=== PATIENT | male | born 2005 | race Caucasian/White ===

== ENCOUNTER → 2024-05-21 | Outpatient (CLI) | payer OTHER ==
[~2024-05-21] MED LIST: ISOVUE-300 61% 100ML VIAL As Ordered ONE; LIDOCAINE 1% MDV 20ML VIAL As Ordered ONE; TRIAMCINOLONE ACETONIDE SUSP 40MG/ML 1ML VIAL As Ordered ONE
== END ==
LOC: M RAD 14:43
PROVIDERS: ATTEND Physician Assistant Surgical
DX: S73.121A Ischiocapsular ligament sprain of right hip, initial encounter (principal); X58.XXXA Exposure to other specified factors, initial encounter; Y92.9 Unspecified place or not applicable
CPT/HCPCS: 20610; 77002; J3301; Q9967

== ENCOUNTER → 2024-07-31 | Outpatient (CLI) | payer OTHER ==
[~2024-07-31] MED LIST changes: +PROHANCE 279.3MG/ML 5ML VIAL As Ordered ONE; -TRIAMCINOLONE ACETONIDE SUSP 40MG/ML 1ML VIAL As Ordered ONE
== END ==
LOC: M RAD 06:28
PROVIDERS: ATTEND Student in an Organized Health Care Education/Training Program
DX: M25.851 Other specified joint disorders, right hip (principal); S73.101A Unspecified sprain of right hip, initial encounter; X58.XXXA Exposure to other specified factors, initial encounter; Y92.9 Unspecified place or not applicable
CPT/HCPCS: 27093; 73723; 77002; A9576; Q9967

== ENCOUNTER 2024-08-05 06:01 | Emergency (ER) | payer OTHER ==
[~2024-08-05] VITALS: Ht 170.2 cm; Wt 84.0 kg
[2024-08-05] MEDS: DERMABOND TOPICAL SKIN ADHESIVE TOP ONE (07:35)
[2024-08-05 08:54] VITALS: BP 120/70; TEMP 97.5; O2SAT 100
== END 2024-08-05 08:54 | disposition home or self-care (01) ==
LOC: M ED 06:01 → EDBD 06:01 → M ED 08:54
DX: S01.81XA Laceration without foreign body of other part of head, initial encounter (principal); S09.90XA Unspecified injury of head, initial encounter; Y04.0XXA Assault by unarmed brawl or fight, initial encounter; F10.10 Alcohol abuse, uncomplicated; Y92.133 Barracks on military base as the place of occurrence of the external cause; Y93.89 Activity, other specified; Y99.1 Military activity

== ENCOUNTER 2024-08-09 10:58 | Emergency (ER) | payer OTHER ==
[~2024-08-09] VITALS: Ht 170.2 cm; Wt 93.7 kg
[2024-08-09] MEDS: diphenhydrAMINE 50MG/ML VIAL IV ONE (14:37)
[2024-08-09] MEDS: NS 1,000 ML IV ONE (14:37)
[2024-08-09] MEDS: METOCLOPRAMIDE INJ 10MG/2ML VIAL IV ONE (14:37)
[2024-08-09] MEDS: KETOROLAC 30 MG/ML 1ML VIAL IV ONE (15:09)
[2024-08-09 15:49] VITALS: BP 143/76; TEMP 97.4; O2SAT 100
== END 2024-08-09 15:52 | disposition home or self-care (01) ==
LOC: M ED 10:58
DX: G44.309 Post-traumatic headache, unspecified, not intractable (principal); W01.198A Fall on same level from slipping, tripping and stumbling with subsequent striking against other object, initial encounter; Y92.9 Unspecified place or not applicable; Y93.89 Activity, other specified; Y99.9 Unspecified external cause status
CPT/HCPCS: 70450; 96361; 96374; 96375; 99284; J1100; J1200; J1885; J2765

== ENCOUNTER 2024-10-19 01:28 | Emergency (ER) | payer OTHER ==
[~2024-10-19] VITALS: Ht 170.2 cm; Wt 77.0 kg
[2024-10-19 02:22] LABS: HEMATOCRIT 43.8 % (42.0-52.0); HEMOGLOBIN 14.7 g/dl (13.5-17.5); MEAN CORPUSCULAR HEMOGLOBIN 29.9 pg (27.0-33.0); MEAN CORPUSCULAR HGB CONC 33.6 g/dl (32.0-36.5); PLATELET COUNT, AUTOMATED 470 10^3/uL (150-450); RED BLOOD COUNT 4.92 10^6/uL (4.30-6.10); WHITE BLOOD COUNT 10.6 10^3/uL (4.0-10.0)
[2024-10-19 02:44] LABS: AMPHETAMINES LEVEL URINE NEGATIVE (NEGATIVE); BARBITURATES URINE NEGATIVE (NEGATIVE); BENZODIAZEPINES URINE NEGATIVE (NEGATIVE); CANNABINOIDS URINE NEGATIVE (NEGATIVE); COCAINE METABOLITE URINE NEGATIVE (NEGATIVE); METHADONE URINE NEGATIVE (NEGATIVE); OPIATES URINE NEGATIVE (NEGATIVE); PHENCYCLIDINE URINE NEGATIVE (NEGATIVE)
[2024-10-19 02:46] LABS: ETHYL ALCOHOL (ETHANOL) 0.264 % (0.000-0.010)
[2024-10-19 02:48] LABS: ALBUMIN 4.6 G/DL (3.2-5.2); ALKALINE PHOSPHATASE 93 U/L (40-129); ALT/SGPT 26 U/L (7.0-40); AST/SGOT 18 U/L (<34); BILIRUBIN,DIRECT 0.1 MG/DL (<0.4); BILIRUBIN,TOTAL 0.4 MG/DL (0.3-1.2); BLOOD UREA NITROGEN 12 MG/DL (9-23); CALCIUM LEVEL 10.1 MG/DL (8.5-10.1); CARBON DIOXIDE LEVEL 22 MMOL/L (20-31); CHLORIDE LEVEL 108 MMOL/L (98-107); CREATININE FOR GFR 1.09 MG/DL (0.70-1.30); GLOMERULAR FILTRATION RATE > 60.0 (>60); GLUCOSE, FASTING 101 MG/DL (60-100); SALICYLATE LEVEL < 3.0 MG/DL (<30); SODIUM LEVEL 143 MMOL/L (136-145); TOTAL PROTEIN 8.1 G/DL (5.7-8.2)
[2024-10-19 02:50] LABS: THYROID STIMULATING HORMONE 1.419 uIU/ML (0.55-4.78)
[2024-10-19] MEDS: NICOTINE 21MG/24HR 1 EA TRANSDERMAL TD ONE (03:25)
[2024-10-19 10:20] VITALS: BP 137/71; TEMP 97.5; O2SAT 98
== END 2024-10-19 11:17 | disposition home or self-care (01) ==
LOC: M ED 01:28 → EDBD 01:28 → M ED 11:17
DX: F10.14 Alcohol abuse with alcohol-induced mood disorder (principal)

== ENCOUNTER 2025-03-31 06:34 | Emergency (ER) | payer OTHER ==
[~2025-03-31] VITALS: Ht 172.7 cm; Wt 75.6 kg
[2025-03-31] MEDS ORDERED: CONC27TA4 PO (07:59)
[2025-03-31] MEDS ORDERED: HOME MED LIST COMPLETE! XX SCH (08:00)
[2025-03-31 08:10] LABS: HEMATOCRIT 40.9 % (42.0-52.0); HEMOGLOBIN 14.1 g/dl (13.5-17.5); MEAN CORPUSCULAR HEMOGLOBIN 30.7 pg (27.0-33.0); MEAN CORPUSCULAR HGB CONC 34.5 g/dl (32.0-36.5); MEAN CORPUSCULAR VOLUME 88.9 fl (80.0-96.0); PLATELET COUNT, AUTOMATED 394 10^3/uL (150-450); WHITE BLOOD COUNT 10.4 10^3/uL (4.0-10.0)
[2025-03-31 08:36] LABS: AMPHETAMINES LEVEL URINE NEGATIVE (NEGATIVE); BARBITURATES URINE NEGATIVE (NEGATIVE); BENZODIAZEPINES URINE NEGATIVE (NEGATIVE); CANNABINOIDS URINE NEGATIVE (NEGATIVE); COCAINE METABOLITE URINE NEGATIVE (NEGATIVE); METHADONE URINE NEGATIVE (NEGATIVE); OPIATES URINE NEGATIVE (NEGATIVE); PHENCYCLIDINE URINE NEGATIVE (NEGATIVE)
[2025-03-31 08:38] LABS: ETHYL ALCOHOL (ETHANOL) 0.194 % (0.000-0.010)
[2025-03-31 08:40] LABS: ALBUMIN 4.6 G/DL (3.2-5.2); ALKALINE PHOSPHATASE 80 U/L (40-129); ALT/SGPT 38 U/L (7.0-40); AST/SGOT 39 U/L (<34); BILIRUBIN,DIRECT 0.1 MG/DL (<0.4); BILIRUBIN,TOTAL 0.4 MG/DL (0.3-1.2); BLOOD UREA NITROGEN 16 MG/DL (9-23); CARBON DIOXIDE LEVEL 24 MMOL/L (20-31); CHLORIDE LEVEL 108 MMOL/L (98-107); CREATININE FOR GFR 0.97 MG/DL (0.70-1.30); GLOMERULAR FILTRATION RATE > 90.0 (>60); GLUCOSE, FASTING 93 MG/DL (60-100); POTASSIUM SERUM 4.1 MMOL/L (3.5-5.1); SALICYLATE LEVEL < 3.0 MG/DL (<30); SODIUM LEVEL 145 MMOL/L (136-145); TOTAL PROTEIN 7.3 G/DL (5.7-8.2)
[2025-03-31 08:42] LABS: THYROID STIMULATING HORMONE 1.189 uIU/ML (0.55-4.78)
[2025-03-31 12:25] VITALS: BP 131/62; TEMP 98.4; O2SAT 97
== END 2025-03-31 12:39 | disposition home or self-care (01) ==
LOC: M ED 06:34
DX: F10.14 Alcohol abuse with alcohol-induced mood disorder (principal); Z79.899 Other long term (current) drug therapy